=== PATIENT | female | born 1955 | race Caucasian/White ===

== ENCOUNTER 2019-11-27 07:32 | Outpatient (CLI) | payer OTHER, SELFPAY ==
--- NOTE | ~2019-11-27 | XR_ITS ---
EXAMINATION: CT abdomen pelvis wo/w con, XR abdomen/kub 1V DATE: 11/27/2019 08:58 (accession [id number]), 11/27/2019 07:57 (accession [id number]) INDICATION: Gross hematuria TECHNIQUE: Computed tomography (CT) of the abdomen and pelvis was performed without and subsequently with 130 cc Omnipaque 350 intravenous contrast. Automated exposure control and iterative reconstructi on technique were employed. Exam dose: 2886.97 mGy-cm total exam DLP. COMPARISON: 09/25/2004 abdomen-AP/erect FINDINGS: The lung bases are clear of infiltrate or consolidation. No pericardial or pleural effusion . Small sliding hiatal hernia. Status post cholecystectomy. No hepatic, splenic, pancreatic, and adrenal or apparent solid renal space-occupying mass lesion is d etected. There are occasional bilateral hypoenhancing lesions of the kidneys, the largest approximate ly 9.5 mm exophytic cyst of the medial aspect of the upper pole of the right kidney, the others too s mall to definitively characterize. Bilateral renal artery calcifications. No urinary tract calculus or hydroureteronephrosis is evident. The urinary bladder is unremarkable. No intraluminal mass lesion or bladder wall thickening is evide nt. Status post hysterectomy. There is atherosclerotic calcification of the abdominal aorta and branches but no abdominal aortic an eurysm. No intraperitoneal or retroperitoneal or pelvic mass lesion or adenopathy or ascites. Normal appendix. No bowel obstruction or intraperitoneal free air. There is diverticulosis of the sig moid colon; no CT evidence of diverticulitis. There are degenerative changes of the thoracic and lumbar spine; in particular there is severe hypert rophic degenerative change at the apophyseal joints and the lumbar and lumbosacral area with associat ed grade 1 anterolisthesis at L4-5. There is multilevel degenerative disc disease of lumbar spine, in volving most prominently L2-3, L3-4 and L4-5. IMPRESSION: Occasional probable small renal cysts; consider [address] follow-up imaging Status post cholecystectomy Status post hysterectomy Small sliding hiatal hernia Mild colonic diverticulosis; no CT evidence of diverticulitis Reviewed, dictated and finalized at [facility]. Reviewed, dictated and finalized at location B. IMPRESSION: Occasional probable small renal cysts; consider [address] follow- up imaging Status post cholecystectomy Status post hysterectomy Small sliding hiatal hernia Mild colonic diverticulosis; no CT evidence of diverticulitis
[2019-11-27 08:35] LABS: Estimated Glomerular Filt Rate 45
== END 2019-11-27 07:33 | disposition home or self-care (01) ==
LOC: ANHIMG 07:35
PROVIDERS: PCP Family Medicine; Visit Provider Urology
DX: R31.0 Gross hematuria (principal); Z90.49 Acquired absence of other specified parts of digestive tract; Z90.710 Acquired absence of both cervix and uterus; K44.9 Diaphragmatic hernia without obstruction or gangrene; K57.90 Diverticulosis of intestine, part unspecified, without perforation or abscess without bleeding
CPT/HCPCS: 36415; 74018; 74178; Q9967

== ENCOUNTER 2020-01-10 13:45 | Emergency (ER) | payer OTHER, SELFPAY ==
--- NOTE | ~2020-01-10 | XR_ITS ---
CORRECTED REPORT RT corrected to LT. See bold/italic text below. 01/11/20 sef XR wrist LT min 3V DATE: 01/10/2020 14:26 INDICATION: Fall. Pain, limited range of motion. TECHNIQUE: 4 views COMPARISON: None FINDINGS: There is a transverse nondisplaced metaphyseal fracture of the distal radius. There may be some additional fracture lines extending into the epiphyseal area. Intra-articular extension without displacement is not excluded. Consider CT correlation if necessary for more definitive evaluation and treatment. The distal ulna and ulnar styloid process are intact. Normal alignment at the wrist joint. IMPRESSION: Nondisplaced distal radial fracture Reviewed, dictated and finalized at location A. MTDD
[2020-01-10 13:51] VITALS: BP 153/93; PULSE 86; RESP 18; TEMP 36.6; O2SAT 97
--- NOTE | 2020-01-10 14:04 | ED.GENADULT ---
HPI - General Adult General Chief complaint: Extremity Injury, Upper Stated complaint: left wrist injury Time Seen by Provider: 01/10/20 13:51 Source: patient Mode of arrival: ambulatory Limitations: no limitations History of Present Illness HPI narrative: Patient is a 64-year-old female who presents for evaluation of left wrist pain. Patient experienced a fall on outstretched hand 2 days ago when she was trying to enter the residence/trailer of a friend when she slipped on the step and put her left hand out to brace her self. She reports some mild pain at that time, but since then has had worsening swelling and difficulty moving her hand due to pain. Patient also reports a lump on the back of her left hand. Patient denies any head trauma, neck pain, loss of consciousness. No vision loss, nausea or vomiting. Patient is on any anticoagulation. No prodromal symptoms such as chest pain or shortness of breath prior to the fall. Patient is right-hand dominant. Related Data Home Medications Medication Instructions Recorded Confirmed omeprazole 40 mg capsule,delayed 40 mg PO DAILY 09/26/19 release calcitriol 0.25 mcg capsule 0.25 mcg PO DAILY 11/01/19 ergocalciferol (vitamin D2) 1,250 1,250 mcg PO WEEKLY 11/01/19 mcg (50,000 unit) capsule furosemide 20 mg tablet 20 mg PO DAILY tablet 11/01/19 losartan 25 mg tablet 25 mg PO DAILY 11/01/19 rosuvastatin 20 mg tablet 20 mg PO DAILY 11/01/19 semaglutide 1 mg/dose (2 mg/1.5 1 mg SUB-Q WEEKLY 11/01/19 mL) subcutaneous pen injector Allergies Allergy/AdvReac Type Severity Reaction Status Date / Time No Known Allergies Allergy Verified 01/10/20 13:55 Review of Systems Review of Systems: Narrative: CONSTITUTIONAL: Denies fever EYES: Denies visual changes, redness, or discharge. ENT: Denies rhinorrhea, congestion, sore throat, or otalgia. CARDIOVASCULAR: Denies chest pain RESPIRATORY: Denies cough or dyspnea. GASTROINTESTINAL: Denies nausea or vomiting SKIN: Reports lump on the back of her left hand MUSCULOSKELETAL: Denies back pain, joint pain, or myalgia. NEUROLOGIC: Denies headache, numbness, or weakness. [facility] Past Medical History Medical History CKD (chronic kidney disease) stage 3, GFR 30-59 ml/min Dependent edema Depression Dyslipidemia Essential (primary) hypertension GERD (gastroesophageal reflux disease) Hiatal hernia with GERD LEAH (obstructive sleep apnea) Severe sleep apnea Type 2 diabetes mellitus without complication, without long-term current use of insulin Surgical History Surgical History History of cholecystectomy 1993 History of total abdominal hysterectomy and bilateral salpingo-oophorectomy 1986 Social History Social History Smoking status: Former smoker Second hand tobacco smoke exposure: No Smoking end date: 09/20/12 Alcohol intake: current Gender identity (if verbalized by the patient): Female Exam Narrative: Exam Narrative: GENERAL: Awake, alert, conversant HEAD: Normocephalic, atraumatic. EYES: PERRLA and EOMI. ENT: Nares clear, no rhinorrhea or epistaxis. Mucous membranes moist. NECK: Supple. CHEST: No respiratory distress, breathing even and non labored HEART: Regular rate, sinus rhythm ABDOMEN:Non distended, non tender EXTREMITIES: Normal range of motion. Mild edema, hematoma of the left hand. Tender to palpation. Nonfluctuant. No erythema. Radial pulses 2+. Intact sensation median, ulnar, radial nerve distribution. Full range of motion at the elbow without pain. Capillary refill less than 3 seconds. SKIN: Warm, dry, no rash. NEURO:No focal deficits. Alert and oriented x3 Course Vital Signs Vital signs: Vital Signs Temperature 36.6 C 01/10/20 13:51 Pulse Rate 86 01/10/20 13:51 Respiratory Rate 18 01/10/20 13:51 Blood
--- NOTE | 2020-01-10 14:43 | PC.NURSE ---
Assumed care of pt, pt is alert and sitting at bedside, discussed POC, no request at this time.
[2020-01-10 15:52] VITALS: BP 124/84; PULSE 84; RESP 14; O2SAT 99
== END 2020-01-10 15:53 | disposition home or self-care (01) ==
PROVIDERS: Emergency Provider Emergency Medicine; PCP Family Medicine
DX: S52.572A Other intraarticular fracture of lower end of left radius, initial encounter for closed fracture (principal); I12.9 Hypertensive chronic kidney disease with stage 1 through stage 4 chronic kidney disease, or unspecified chronic kidney disease; E11.22 Type 2 diabetes mellitus with diabetic chronic kidney disease; N18.3 Chronic kidney disease, stage 3 (moderate); Z79.84 Long term (current) use of oral hypoglycemic drugs; E78.5 Hyperlipidemia, unspecified; K21.9 Gastro-esophageal reflux disease without esophagitis; G47.30 Sleep apnea, unspecified; Z87.891 Personal history of nicotine dependence; W10.9XXA Fall (on) (from) unspecified stairs and steps, initial encounter
CPT/HCPCS: 29125; 73110; 99284

== ENCOUNTER 2020-09-19 10:34 | Outpatient (CLI) | payer OTHER, SELFPAY ==
--- NOTE | ~2020-09-19 | MM_ITS ---
EXAMINATION: MM screening [facility] BI w [place] HISTORY: Screening mammogram TECHNIQUE: Craniocaudal and mediolateral oblique 3-D tomosynthesis images were obtained and synthetic 2-D images were generated. CAD analysis was submitted and interpreted. COMPARISON: 06/13/2019, 10/26/2017, 01/07/2015 BREAST PARENCHYMAL COMPOSITION: The breasts are almost entirely fatty. FINDINGS: There is no evidence of suspicious mass, calcification, or architectural distortion to sugg est malignancy in either breast. There has been no suspicious interval change. IMPRESSION: 1. No mammographic evidence of malignancy. 2. Recommend routine screening mammography in one year. BI-RADS Category 1: Negative Reviewed, dictated and finalized at location A. NT CARE
== END 2020-09-19 10:35 | disposition home or self-care (01) ==
LOC: ANHIMG 10:36
PROVIDERS: PCP Family Medicine; Visit Provider Nurse Practitioner
DX: Z12.31 Encounter for screening mammogram for malignant neoplasm of breast (principal)
CPT/HCPCS: 77063; 77067

== ENCOUNTER 2021-01-18 11:51 | Outpatient (CLI) | payer OTHER, SELFPAY ==
--- NOTE | 2021-01-18 | ECG_ITS ---
Measurements Intervals [place] Rate: 82 P: 13 KS: 167 QRS: -14 QRSD: 100 T: 73 QT: 385 QTc: 452 Interpretive Statements SINUS RHYTHM VENTRICULAR PREMATURE COMPLEXES ANTEROSEPTAL INFARCT, AGE INDETERMINATE BORDERLINE ST-T WAVE ABNORMALITY- HIGH LATERAL LEADS BASELINE ARTIFACT- AVR, AVF ABNORMAL ECG Electronically Signed On 01-18-2021 17:10:04 CDT by Saurabh Diez D.O.
== END 2021-01-18 11:52 | disposition home or self-care (01) ==
LOC: ANHCARD 11:53
PROVIDERS: PCP Family Medicine; Visit Provider Family Medicine
DX: I49.9 Cardiac arrhythmia, unspecified (principal); R94.31 Abnormal electrocardiogram [ECG] [EKG]
CPT/HCPCS: 93005

== ENCOUNTER 2021-02-05 10:23 | Outpatient (CLI) | payer OTHER, SELFPAY ==
--- NOTE | ~2021-02-05 | NM_ITS ---
EXAMINATION: NM ashly stress w perfusion DATE: 02/05/2021 12:59 INDICATION: Abnormal electrocardiogram. TECHNIQUE: Rest images were obtained following intravenous administration of 9.2 mCi Tc99m tetrofosmi n (Myoview). The patient was infused intravenously with Lexiscan (regadenoson). Then, 29 mCi Tc99m te trofosmin (Myoview) was administered intravenously, and axial and prone stress images were obtained. Data was reconstructed into short axis and horizontal and vertical long axis SPECT images. Gated SPEC T images were also obtained. COMPARISON: CT abdomen and pelvis 11/27/2019 FINDINGS: There is a large, severe, fixed perfusion defect involving left ventricular apex and anteri or and anteroseptal wall, consistent with infarct. No reversible component to suggest ischemia. Ther e is global hypokinesis. Left ventricular ejection fraction measures 36%. IMPRESSION: 1. 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 2. Global hypokinesis with left ventricular ejection fraction measuring 36%. Reviewed, dictated and finalized at location A. IMPRESSION: 1. Large area of severe infarct involving left ventricular apex and anterior an d anteroseptal rodriguez. 2. Global hypokinesis with left ventricular ejection fraction measuring 36%.
--- NOTE | 2021-02-05 10:03 | EST_ITS ---
Patient Info Name: Mis Vo Age: 65 years : 1955 Gender: Female Ht: 66 in Wt: 230 lbs BSA: 2.25 m2 Exam Date: 02/05/2021 11:46 AM Exam Location: [facility] Stress Patient Status: Preadmit Admit Date: 02/05/2021 Staff Ordering Physician: Rey Cabral MD Attending Provider: Rey Cabral MD Exercise Technologist: Annemarie Escoto CT Exercise Physician: Saurabh Diez DO Exam Type: CA stress ashly w NM Study Info A regadenoson stress test was performed. Summary 1. 1. Negative lexiscan stress test for ischemic ST changes by ECG criteria. 2. 2. Stable hemodynamics throughout the test. 3. 3. Nuclear scan to follow and will be reported separately. Please correlate with it. 4. 4. Patient informed of the above results. Protocol: Lexiscan Stress ECG Details Stage: REST Duration (min): 0 min : 40 sec HR (bpm): 85 SBP (mmHg): --- DBP (mmHg): --- Stage: REST Duration (min): 6 min : 1 sec HR (bpm): 87 SBP (mmHg): 133 DBP (mmHg): 104 Stage: STAGE 1 Duration (min): 1 min : 0 sec HR (bpm): 100 SBP (mmHg): 142 DBP (mmHg): 109 Stage: RECOVERY Duration (min): 1 min : 0 sec HR (bpm): 91 SBP (mmHg): 142 DBP (mmHg): 109 Stage: RECOVERY Duration (min): 2 min : 0 sec HR (bpm): 86 SBP (mmHg): 152 DBP (mmHg): 101 Stage: RECOVERY Duration (min): 2 min : 6 sec HR (bpm): 89 SBP (mmHg): 152 DBP (mmHg): 101 Rest HR: 87 bpm Peak HR: 102 bpm Rest Sys BP: 133 mmHg Peak Sys BP: 152 mmHg Max Pred HR: 156 bpm % Max Pred HR: 65 % Target HR: 133 bpm Max RPP: 15,504 bpm*mmHg Termination Reason: Completed protocol Cardiac Symptoms: None Total Time: 1 min : 0 sec Rest [place] BP: 104 mmHg Peak [place] BP: 101 mmHg Total Dose: 0.4 mg Resting ECG Sinus rhythm, anteroseptal infarct, age indeterminate, PVC's. Stress ECG No ST changes. Arrhythmias None. Report Signatures
== END 2021-02-05 10:24 | disposition home or self-care (01) ==
PROVIDERS: PCP Family Medicine; Visit Provider Family Medicine
DX: I49.9 Cardiac arrhythmia, unspecified (principal); R94.31 Abnormal electrocardiogram [ECG] [EKG]; I10 Essential (primary) hypertension
CPT/HCPCS: 78452; 93017; A9502; J2785

== ENCOUNTER 2021-03-27 01:54 | Day surgery (SDC) | payer OTHER, SELFPAY ==
[2021-03-26 15:52] VITALS: BMI 37.7
[2021-03-27] VITALS (17 sets, daily range): BP systolic 112–168; BP diastolic 70–95; PULSE 68–94; RESP 12–24; TEMP 36.2–36.7; O2SAT 96–100; BMI 38.2
[2021-03-27 08:58] LABS: Basophils Percent Auto 0.5 % (0.2-1.2); Eosinophils Absolute Auto 0.3 K/mm3 (0-0.3); Eosinophils Percent Auto 4.6 % (0-4.4); Hematocrit 45.1 % (37.0-47.0); Hemoglobin 14.2 g/dL (12.0-15.0); Immature Granulocyte Absolute 0.02 K/mm3 (0.00-0.031); Immature Granulocyte Percent A 0.3 % (0-0.5); Lymphocytes Percent Auto 18.6 % (18.3-44.2); Mean Corpuscular HGB Conc 31.5 g/dl (32-36); Mean Corpuscular Hemoglobin 29.1 pg (26-34); Mean Corpuscular Volume 92.4 fl (80-100); Mean Platelet Volume 10.6 fl (7.4-10.4); Monocytes Absolute Auto 0.4 K/mm3 (0.1-0.6); Monocytes Percent Auto 7.3 % (2.6-8.5); Neutrophils Absolute Auto 4.1 K/mm3 (1.3-6.7); Neutrophils Percent Auto 68.7 % (45.5-73.1); Platelet Count Result 216 k/mm3 (150-375); Red Blood Count 4.88 M/mm3 (4.2-5.4); Red Cell Distribution Width 12.6 % (11.5-14.5); White Blood Count 5.9 K/mm3 (4.5-10.0)
[2021-03-27 09:09] LABS: Anion Gap 9 mmol/L (8-16); Blood Urea Nitrogen 28 mg/dL (7-17); Carbon Dioxide 28 mmol/L (22-30); Chloride 102 mmol/L (98-107); Estimated CRCL calculation 56 ml/min; Estimated Glomerular Filt Rate 50; Glucose 100 mg/dL (65-105); Potassium 4.5 mmol/L (3.4-5.0); Sodium 139 mmol/L (137-145)
--- NOTE | 2021-03-27 10:00 | WPDMODSED ---
Moderate Sedation Note-Pt Data Patient Data Allergies Allergy/AdvReac Type Severity Reaction Status Date / Time No Known Allergies Allergy Verified 03/27/21 09:01 Home Medications Medication Instructions Recorded Confirmed Type rosuvastatin 20 mg tablet 20 mg PO DAILY 11/01/19 03/27/21 History semaglutide 1 mg/dose (2 mg/1.5 1 mg SUB-Q WEEKLY 11/01/19 03/27/21 History mL) subcutaneous pen injector omeprazole 40 mg capsule,delayed 40 mg PO DAILY cap 01/16/21 03/27/21 History release triamterene 75 1 tablet PO DAILY #90 tablet 01/16/21 03/27/21 Rx mg-hydrochlorothiazide 50 mg tablet aspirin 81 mg PO DAILY 03/26/21 03/27/21 History cholecalciferol (vitamin D3) 50 mcg PO DAILY 03/27/21 03/27/21 History magnesium oxide 250 mg PO DAILY 03/27/21 03/27/21 History Current Medications: Active Medications Sodium Chloride (Normal Saline Iv) 500 mls @ 100 mls/hr IV CONT .Q5H BRADLY Sedation/Anesthesia: No previous sedation/anesthesia problems (including family history). [facility] Past Medical History Medical History CKD (chronic kidney disease) stage 3, GFR 30-59 ml/min Dependent edema Depression Dyslipidemia Essential (primary) hypertension GERD (gastroesophageal reflux disease) Hiatal hernia with GERD LEAH (obstructive sleep apnea) Severe sleep apnea Type 2 diabetes mellitus without complication, without long-term current use of insulin Surgical History Surgical History History of cholecystectomy 1993 History of total abdominal hysterectomy and bilateral salpingo-oophorectomy 1986 Social History Social History Smoking status: Former smoker Tobacco type: cigarettes Second hand tobacco smoke exposure: No Smoking end date: 09/20/12 Additional smoking assessment comments: Quit smoking 2013 Alcohol intake: current Alcohol use details: Occasionally drinks Substance use: never Substance use type: does not use Living arrangements: with roommate(s) Additional living arrangements comments: Lives with boyfriend Gender identity (if verbalized by the patient): Female Sexual Orientation (if Verbalized by the Patient): Straight or Heterosexual Spiritual care concerns: No Mod Sed Physical Exam Physical Exam Pre Procedural Exam: Normal: Appearance, Eyes, Ears, Nose, Neck, Throat, Airway, Lungs, Heart Size, Heart Rate, Heart Rhythm, Neuro Exam, Abdomen, Liver, Kidneys, Spleen, Breasts, Genitalia, Extremities and Skin Hours since solid foods: 8 Hours since liquid intake: 8 Internal Medicine - PN: Obj Da Vital Signs Vital Signs: Vital Signs - 24 hr 03/27/21 08:50 Temperature 36.2 C L Pulse Rate 78 Respiratory Rate 12 Blood Pressure 143/82 H Pulse Oximetry 98 Meds/Results Medications: Active Medications Generic Name Dose Route Start Last Admin Trade Name Freq PRN Reason Stop Dose Admin Sodium Chloride 500 mls @ 100 mls/hr 03/27/21 08:30 Normal Saline Iv IV CONT .Q5H BRADLY Labs CBC & Chem 7: 03/27/21 08:49 03/27/21 08:49 Labs: Laboratory Results - last 24 hr 03/27/21 03/27/21 03/27/21 08:49 08:49 08:49 WBC 5.9 RBC 4.88 Hgb 14.2 Hct 45.1 MCV 92.4 MCH 29.1 MCHC 31.5 L RDW 12.6 Plt Count 216 MPV 10.6 H Immature Gran % (Auto) 0.3 Neut % (Auto) 68.7 Lymph % (Auto) 18.6 [place] % (Auto) 7.3 Eos % (Auto) 4.6 H Baso % (Auto) 0.5 Lymph # (Auto) 1.10 [place] # (Auto) 0.4 Eos # (Auto) 0.3 Baso # (Auto) 0.0 Abs Immat Gran (auto) 0.02 Absolute Neuts (auto) 4.1 Absolute Nucleated RBC 0.0 Nucleated RBC % 0.0 PT 13.0 INR 1.0 Sodium 139 Potassium 4.5 Chloride 102 Carbon Dioxide 28 Anion Gap 9 BUN 28 H Creatinine 1.10 H Estim Creat Clear Calc 56 Estimated GFR 50
--- NOTE | 2021-03-27 11:15 | PM.IMHP ---
H&P: HPI History of Present Illness Date/Time: 03/27/21 10:00 a.m. Chief Complaint: his abnormal stress test Narrative: this 65-year-old female with past history diabetes, hypertension sleep apnea on CPAP who had elevated blood pressure and was noticed to have PVCs and EKG shows Q-waves lead V1 to V3. Underwent stress test that showed large area of infarction involving the apical, anterior wall and ejection fraction 35%. She denies cardiac symptoms of chest pain, shortness breath, orthopnea or proximal transient dizziness or syncope. Review of Systems Review of Systems: All systems reviewed & are unremarkable except as noted in HPI and below Constitutional: Constitutional: Denies chills, Denies fatigue, Denies fever(s), Denies headache(s) and Denies snoring Eyes: Eyes: Denies eye discharge and Denies loss of vision ENT: Denies dizziness, Denies headache(s), Denies nasal discharge and Denies sore throat Cardiovascular: Cardiovascular: Reports as per HPI, Denies chest pain, Denies syncope, Denies rapid heart rate, Denies leg edema, Denies dyspnea, Denies dyspnea on exertion, Denies orthopnea and Denies paroxysmal nocturnal dyspnea Respiratory: Respiratory: Denies chest congestion, Denies cough, Denies dyspnea, Denies dyspnea on exertion, Denies snoring and Denies wheezing Gastrointestinal: Gastrointestinal: Denies abdominal pain, Denies diarrhea, Denies nausea and Denies vomiting Genitourinary: Genitourinary: Denies hematuria, Denies urinary frequency, Denies dysuria and Denies flank pain Musculoskeletal: Musculoskeletal: Denies myalgias, Denies arthralgias and Denies joint swelling Neurologic: Denies Abnormal speech present, Denies dizziness, Denies syncope, Denies headache(s), Denies focal weakness and Denies loss of vision Psychiatric: Psychiatric: Denies anxiety and Denies depression Endocrine: Endocrine: Denies cold intolerance, Denies fatigue and Denies heat intolerance Hematologic/Lymphatic: Hematologic/Lymphatic: Denies easy bleeding and Denies easy bruising Allergic/Immunologic: Allergic/Immunologic: Denies urticaria and Denies wheezing PMFSH Past Medical History Medical History CKD (chronic kidney disease) stage 3, GFR 30-59 ml/min Dependent edema Depression Dyslipidemia Essential (primary) hypertension GERD (gastroesophageal reflux disease) Hiatal hernia with GERD LEAH (obstructive sleep apnea) Severe sleep apnea Type 2 diabetes mellitus without complication, without long-term current use of insulin Surgical History Surgical History History of cholecystectomy 1993 History of total abdominal hysterectomy and bilateral salpingo-oophorectomy 1986 Social History Social History Smoking status: Former smoker Tobacco type: cigarettes Second hand tobacco smoke exposure: No Smoking end date: 09/20/12 Additional smoking assessment comments: Quit smoking 2013 Alcohol intake: current Alcohol use details: Occasionally drinks Substance use: never Substance use type: does not use Living arrangements: with roommate(s) Additional living arrangements comments: Lives with boyfriend Gender identity (if verbalized by the patient): Female Sexual Orientation (if Verbalized by the Patient): Straight or Heterosexual Spiritual care concerns: No Meds Home Medications and Allergies Home Medications Medication Instructions Recorded Confirmed Type rosuvastatin 20 mg tablet 20 mg PO DAILY 11/01/19 03/27/21 History semaglutide 1 mg/dose (2 mg/1.5 1 mg SUB-Q WEEKLY 11/01/19 03/27/21 History mL) subcutaneous pen injector omeprazole 40 mg capsule,delayed 40 mg PO DAILY cap 01/16/21 03/27/21 History release triamterene 75 1 tablet PO DAILY #90 tablet 01/16/21 03/27/21 Rx mg-hydrochlorothiazide 50 mg tablet aspirin 81 mg PO
--- NOTE | 2021-03-27 11:18 | P.PCNCC_ITS ---
Cardiac Cath Procedure Note Date of procedure:: 03/27/21 Performing physician:: Juanita Gordon MD date of service March 27, 2021 Indication:: abnormal stress test Brief clinical history:: this 65-year-old lady with history of diabetes, hypertension and hyperlipidemia who was evaluated for PVCs and underwent stress test that shows a large area infarction involving the anterior wall. Ejection fraction 36% Procedure Procedure performed:: 1-Moderate sedation that started at 10:26 a.m.and ended at 11:08 a.m. using 3mg of Versed and 75mcg fentanyl. The registered nurse was florencia nieves 2-Selective left and right coronary angiogram. 3-Left heart catheterization with measurement of LVEDP and measurement of gradient across aortic valve. 4- deployment of a drug-eluting stent Xience 3.25 x 18 to distal left PDA 4-Right common femoral arterial angiogram. 5-Deployment of 6 Bah[place]ian Angio-Seal. Sedation/Medication given:: Moderate sedation. Access site:: Right common femoral artery. Estimated blood loss:: 10cc Procedure note:: After informed consent patient was brought in to laboratory asst with the was draped and prepped in usual manner. Moderate sedation was given and the right groin was infiltrated using 1% lidocaine. Five Bahamian sheath was obtained using micropuncture needle and the modified Seldinger technique. Selective left coronary angiogram was done using JL4 catheter with the tip of the catheter placed in the left main coronary artery. Selective right coronary angiogram was done using JR4 catheter with the tip of the catheter placed to the right coronary artery. After that 5 [place]amian pigtail catheter was advanced across the aortic valve into the left ventricle with measurement of LVEDP and measurement of gradient across aortic valve. Right common femoral arterial angiogram was done. Findings:: 1- left coronary artery is a large artery that divides into large LAD, large circumflex artery. Left main is free of disease. 2- left anterior descending artery And totally occluded proximally. [id number] and [id number] collaterals. There is a faint channel seen coming from the stump of the proximal LAD. medium-sized diagonal branch proximal to the occlusion has proximal 50% 3- leftcircumflex artery is a large artery and codominant. Has diffuse 50% stenosis in the proximal and mid segment. Distal left PDA 95%. 4- right coronary artery is Large artery. Diffuse irregularities and has 50% proximally. right to left collaterals. 5- LVEDP was 50 mm Hgand no gradient across aortic valve. 6- opening arterial pressure was 150/90 and closing pressure was 130/80 7- right femoral artery angiogram shows no significant disease in the right common femoral artery. Conclusion:: successful stenting left PDA totally occluded LAD with [id number] and [id number]-gc-gluf collaterals. Assessment and Plan Additional Plan will bring this patient to [facility] for attempt to open the LAD. Her ejection fraction is low
[2021-03-27 15:22] LABS: Glucose Point of Care 144 mg/dl (65-105)
--- NOTE | 2021-03-27 18:15 | PC.NURSE ---
This patient, Mis Vo, was received from [facility] on 03/27/21 at 1815. Patient/family oriented to unit policies and routines.
--- NOTE | 2021-03-27 18:48 | ECG_ITS ---
Rate 89 DC 142 QRSd 94 QT 385 QTc 470 --[place]-- P -31 QRS -31 T 72 SINUS RHYTHM VENTRICULAR PREMATURE COMPLEXES LEFT AXIS DEVIATION ANTEROSEPTAL INFARCT, AGE INDETERMINATE BORDERLINE ST-T WAVE ABNORMALITY- HIGH LATERAL LEADS ABNORMAL ECG Electronically Signed On 03-27-2021 20:10:44 CDT by Saurabh Diez D.O. COMPARED TO ECG 01/18/2021 12:07:12 LEFT-AXIS DEVIATION NOW PRESENT MTDD
--- NOTE | 2021-03-27 18:53 | PC.NURSE ---
RN gave report to Benji SOTO. Patient transported to room and hooked up to bedside tele monitor.
[2021-03-27] MEDS: SODIUM CHLORIDE 0.9% IV 1,000 ML 125 ML IV CONT (20:27)
[2021-03-27] MEDS: TICAGRELOR 90 MG TABLET PO (20:27)
[2021-03-27 21:23] LABS: Glucose Point of Care 145 mg/dl (65-105)
[2021-03-28] VITALS: BP 138/74; PULSE 77; PULSE 80; RESP 13; TEMP 36.7; O2SAT 96
[2021-03-28 04:00] VITALS: BP 140/71; PULSE 78; PULSE 80; RESP 13; TEMP 36.9; O2SAT 98
[2021-03-28 06:21] LABS: Anion Gap 6 mmol/L (8-16); Blood Urea Nitrogen 23 mg/dL (7-17); Calcium 9.9 mg/dL (8.4-10.2); Carbon Dioxide 31 mmol/L (22-30); Chloride 102 mmol/L (98-107); Estimated CRCL calculation 62 ml/min; Estimated Glomerular Filt Rate 56; Glucose 118 mg/dL (65-105); Potassium 4.6 mmol/L (3.4-5.0); Sodium 139 mmol/L (137-145)
[2021-03-28 08:00] VITALS: BP 147/80; PULSE 74; PULSE 94; RESP 16; TEMP 36.4; O2SAT 97
[2021-03-28 08:02] LABS: Glucose Point of Care 118 mg/dl (65-105)
[2021-03-28] MEDS: TRIAMTERENE 37.5 MG/HCTZ 25 MG (MAXZIDE) TABLET 2 TAB PO (08:57)
[2021-03-28] MEDS: TICAGRELOR 90 MG TABLET PO (08:57)
[2021-03-28] MEDS: ASPIRIN 81 MG ENTERIC TABLET PO (08:57)
[2021-03-28] MEDS: ROSUVASTATIN 10 MG TABLET 20 MG PO (08:57)
[2021-03-28] MEDS: PANTOPRAZOLE 40 MG TABLET PO (08:57)
[2021-03-28 10:00] VITALS: PULSE 70
--- NOTE | 2021-03-28 11:42 | PM.DS ---
DS: Admitting Diagnosis Admitting Diagnosis Admitting Diagnosis: abnormal stress test <RAJESH Mcintosh - Last Filed: 03/28/21 12:19> DS: Discharge Diagnosis Discharge Diagnosis (1) Positive cardiac stress test: Code(s): R94.39 - Abnormal result of other cardiovascular function study <RAJESH Mcintosh - Last Filed: 03/28/21 12:19> Status: Acute <RAJESH Mcintosh - Last Filed: 03/28/21 12:19> Assessment and Plan: Lexiscan stress test performed in January of this year revealin.Large area of severe infarct involving left ventricular apex and anterior and anteroseptal rodriguez. 2. Global hypokinesis with left ventricular ejection fraction measuring 36%. For this reason a left heart catheterization was recommended and performed on 03/27/2021. <RAJESH Mcintosh - Last Filed: 03/28/21 12:19> (2) History of heart artery stent: Code(s): Z95.5 - Presence of coronary angioplasty implant and graft <RAJESH Mcintosh - Last Filed: 03/28/21 12:19> Status: Acute <RAJESH Mcintosh - Last Filed: 03/28/21 12:19> Assessment and Plan: Left heart catheterization from 03/27/2021 revealed: 1- left coronary artery is a large artery that divides into large LAD, large circumflex artery. Left main is free of disease. 2- left anterior descending artery And totally occluded proximally. Xxfp-[id number]-ansv and rhwsg-ke-ldwn collaterals. There is a faint channel seen coming from the stump of the proximal LAD. medium-sized diagonal branch proximal to the occlusion has proximal 50% 3- left circumflex artery is a large artery and codominant. Has diffuse 50% stenosis in the proximal and mid segment. Distal left PDA 95%. 4- right coronary artery is Large artery. Diffuse irregularities and has 50% proximally. right to left collaterals. 5- LVEDP was 50 mm Hg and no gradient across aortic valve. 6- opening arterial pressure was 150/90 and closing pressure was 130/80 7- right femoral artery angiogram shows no significant disease in the right common femoral artery. A Xience 3.25 x 18 drug-eluting stent was deployed to distal left PDA. She has been placed on aspirin, Brilinta, Crestor. She will return to [facility] in several weeks for an elective, scheduled left heart catheterization and PCI. <RAJESH Mcintosh - Last Filed: 03/28/21 12:19> (3) Decreased cardiac ejection fraction: Code(s): R93.1 - Abnormal findings on diagnostic imaging of heart and coronary circulation <RAJESH Mcintosh - Last Filed: 03/28/21 12:19> Status: Acute <RAJESH Mcintosh - Last Filed: 03/28/21 12:19> Assessment and Plan: Ischemic etiology. Ejection fraction on recent echocardiogram was estimated at 35-40%. <RAJESH Mcintosh - Last Filed: 03/28/21 12:19> DS: Summary Hospital Course Reason for hospitalization: Elective left heart cath <RAJESH Mcintosh - Last Filed: 03/28/21 12:19> Hospital Course: Patient Presented to the hospital on 03/27/2021 for elective left heart catheterization. This was recommended by Dr. Gordon following an abnormal Lexiscan stress test and echocardiogram showing reduced systolic function, EF 35-40%. Coronary angiogram revealed total proximal occlusion of the LAD, 50% occlusion to a diagonal branch off the LAD, 95% stenosis of distal left PDA, diffuse disease of the right coronary artery. a drug-eluting stent was placed in the left PDA. She did not encounter any aisha procedural complications. Today, she is feeling well and does not have any complaints of any kind. Her right groin catheter insertion site is free from any bleeding, hematoma, pain. She is stable and appropriate for discharge to home today. <RAJESH Mcintosh - Last Filed: 03/28/21 12:19> I HAVE SEEN AND EXAMINED THE PATIENT AND AGREE WITH THE ASSESSMENT AND PLAN OF THE NURSE PRACTITIONER. SHE WAS ADMI
[2021-03-28 11:55] LABS: Glucose Point of Care 127 mg/dl (65-105)
[2021-03-28 11:56] VITALS: BP 127/96; PULSE 103; RESP 15; TEMP 36.6; O2SAT 94
[2021-03-28] MEDS: MAGNESIUM OXIDE 200 MG TABLET PO (13:04)
== END 2021-03-28 13:43 | disposition home or self-care (01) ==
LOC: ANHCATHLAB 08:29 → ANHCPC 14:20 → ANHIMU 18:42
PROVIDERS: PCP Family Medicine; Visit Provider Internal Medicine Cardiovascular Disease
PROC: 4A023N7 Measurement of Cardiac Sampling and Pressure, Left Heart, Percutaneous Approach (ICD-10-PCS; CPT 93452; principal; 2021-03-27 10:00)
DX: I25.10 Atherosclerotic heart disease of native coronary artery without angina pectoris (principal); I49.3 Ventricular premature depolarization; E11.9 Type 2 diabetes mellitus without complications; E78.5 Hyperlipidemia, unspecified; F32.9 Major depressive disorder, single episode, unspecified; I12.9 Hypertensive chronic kidney disease with stage 1 through stage 4 chronic kidney disease, or unspecified chronic kidney disease; N18.30 Chronic kidney disease, stage 3 unspecified; G47.33 Obstructive sleep apnea (adult) (pediatric); K44.9 Diaphragmatic hernia without obstruction or gangrene; R60.9 Edema, unspecified; Z87.891 Personal history of nicotine dependence; K21.9 Gastro-esophageal reflux disease without esophagitis
CPT/HCPCS: 36415; 80048; 82948; 85025; 85610; 93005; 93458; 94660; A9270; C1725; C1760; C1769; C1874; C1887; C1894; C9600; G0269; J0583; J1644; J2250; J3010; J7030; J7040

== ENCOUNTER 2021-09-04 08:43 | Outpatient (CLI) | payer OTHER, SELFPAY ==
[2021-09-04 09:26] LABS: Basophils Percent Auto 0.4 % (0.2-1.2); Eosinophils Absolute Auto 0.2 K/mm3 (0-0.3); Eosinophils Percent Auto 3.4 % (0-4.4); Hemoglobin 15.2 g/dL (12.0-15.0); Immature Granulocyte Absolute 0.02 K/mm3 (0.00-0.031); Immature Granulocyte Percent A 0.3 % (0-0.5); Lymphocytes Absolute Auto 1.51 K/mm3 (0.9-3.2); Mean Corpuscular Hemoglobin 30.6 pg (26-34); Mean Corpuscular Volume 92.6 fl (80-100); Mean Platelet Volume 10.9 fl (7.4-10.4); Monocytes Absolute Auto 0.5 K/mm3 (0.1-0.6); Monocytes Percent Auto 7.9 % (2.6-8.5); Neutrophils Absolute Auto 4.5 K/mm3 (1.3-6.7); Platelet Count Result 242 k/mm3 (150-375); Red Blood Count 4.97 M/mm3 (4.2-5.4); Red Cell Distribution Width 12.2 % (11.5-14.5); White Blood Count 6.9 K/mm3 (4.5-10.0)
[2021-09-04 09:38] LABS: Anion Gap 8 mmol/L (8-16); Blood Urea Nitrogen 33 mg/dL (7-17); Calcium 10.4 mg/dL (8.4-10.2); Carbon Dioxide 31 mmol/L (22-30); Chloride 101 mmol/L (98-107); Estimated Glomerular Filt Rate 50; Glucose 118 mg/dL (65-110); Potassium 4.6 mmol/L (3.4-5.0); Sodium 140 mmol/L (137-145)
== END 2021-09-04 08:44 | disposition home or self-care (01) ==
PROVIDERS: PCP Family Medicine; Visit Provider Internal Medicine Cardiovascular Disease
DX: I48.0 Paroxysmal atrial fibrillation (principal)
CPT/HCPCS: 36415; 80048; 84443; 85025

== ENCOUNTER 2022-01-01 16:57 | Outpatient (CLI) | payer OTHER, SELFPAY ==
--- NOTE | ~2022-01-01 | MM_ITS ---
EXAMINATION: MM screening darinel BI w rico HISTORY: Screening TECHNIQUE: Craniocaudal and mediolateral oblique 3-D tomosynthesis images were obtained and synthetic 2-D images were generated. CAD analysis was submitted and interpreted. COMPARISON: Comparison to multiple prior studies sequentially, with oldest reviewed study dated 01/09. BREAST PARENCHYMAL COMPOSITION: There are scattered areas of fibroglandular density. FINDINGS: There is no evidence of suspicious mass, calcification, or architectural distortion to sugg est malignancy in either breast. There has been no suspicious interval change. IMPRESSION: 1. No mammographic evidence of malignancy. 2. Recommend routine screening mammography in one year. BI-RADS Category 1: Negative Reviewed, dictated and finalized at location A.
== END 2022-01-01 16:58 | disposition home or self-care (01) ==
LOC: ANHIMG 16:58
PROVIDERS: PCP Family Medicine; Visit Provider Obstetrics & Gynecology Gynecology
DX: Z12.31 Encounter for screening mammogram for malignant neoplasm of breast (principal)
CPT/HCPCS: 77063; 77067

== ENCOUNTER 2022-09-29 14:40 | Outpatient (RCR) | payer OTHER, SELFPAY ==
[2022-09-29 17:42] LABS: Creatinine Urine 89.9 mg/dL
[2022-09-29 17:54] LABS: MALB Creatinine Ratio 310.1 mg/g (0-30); Microalbumin Urine Random 278.8 mg/L (0-16.7)
[2022-09-29 19:36] LABS: Anion Gap 9 mmol/L (8-16); Blood Urea Nitrogen 22 mg/dL (7-17); Calcium 9.9 mg/dL (8.4-10.2); Carbon Dioxide 27 mmol/L (22-30); Chloride 104 mmol/L (98-107); Estimated Glomerular Filt Rate 56; Glucose 165 mg/dL (65-110); HDL Direct 68 mg/dL; Potassium 4.9 mmol/L (3.4-5.0); Sodium 140 mmol/L (137-145)
[2022-09-29 19:46] LABS: LDL Cholesterol Direct 107 mg/dL
== END 2022-12-28 23:59 | disposition home or self-care (01) ==
LOC: ANHWCLAB 14:40
PROVIDERS: PCP Family Medicine; Visit Provider Internal Medicine Endocrinology, Diabetes & Metabolism
DX: E11.65 Type 2 diabetes mellitus with hyperglycemia (principal)
CPT/HCPCS: 36415; 80048; 82043; 83718; 83721; 84443

== ENCOUNTER 2022-12-17 15:30 | Outpatient (RCR) | payer OTHER, SELFPAY ==
[2022-10-27 08:10] VITALS: BMI 40.6
[2022-10-27 08:35] VITALS: BMI 40.6
== END 2023-01-11 12:38 | disposition home or self-care (01) ==
LOC: ANHDMC 15:30
PROVIDERS: PCP Family Medicine; Visit Provider Internal Medicine Endocrinology, Diabetes & Metabolism
DX: E11.65 Type 2 diabetes mellitus with hyperglycemia (principal); Z71.89 Other specified counseling; Z71.3 Dietary counseling and surveillance
CPT/HCPCS: 97802; G0108

== ENCOUNTER 2023-04-20 15:30 | Outpatient (RCR) | payer OTHER, SELFPAY | END 2023-04-20 16:50 | disposition home or self-care (01) | LOC: ANHDMC 15:30 | PROVIDERS: PCP Family Medicine; Visit Provider Internal Medicine Endocrinology, Diabetes & Metabolism | DX: E11.65 Type 2 diabetes mellitus with hyperglycemia (principal); Z71.89 Other specified counseling | CPT/HCPCS: G0108 ==

== ENCOUNTER 2023-10-08 13:37 | Outpatient (CLI) | payer OTHER, SELFPAY ==
--- NOTE | ~2023-10-08 | DEXA_ITS ---
Bone Density Report Name: PACO GONZALEZ Patient ID: Age: 67 Sex: Female Ethnicity: White Date of : 1955 Indication: postmenopausal; screening for osteoporosis; height loss; hysterectomy; Referring Provider: HAL ROSEN Study: Bone densitometry was performed. Exam Date: October 08, 2023 Accession number: [id number] Bone Density: Region BMD T-score Z-score Classification AP Spine(L1-L4) 1.151 0.9 2.8 Normal Femoral Neck (Left) 0.673 -1.6 0.0 Osteopenia Total Hip (Left) 0.919 -0.2 1.1 Normal Femoral Neck (Right) 0.758 -0.8 0.8 Normal Total Hip (Right) 0.897 -0.4 1.0 Normal Total Hip Mean 0.908 -0.3 1.1 Normal World Health Organization criteria for BMD impression classify patients as: Normal (T-score at or above -1.0), Osteopenia (T-score between -1.0 and -2.5), or Osteoporosis (T-score at or below -2.5). 10-year Fracture Risk(1): Major Osteoporotic Fracture 8.3% Hip Fracture 0.9% Reported Risk Factors: [place] (), Neck BMD=0.673, BMI=39.6 (1) FRAX? Version 3.08. Fracture probability calculated for an untreated patient. Fracture probability may be lower if the patient has received treatment. Clinical Information Provided by Patient: Has the following medical conditions: Hysterectomy Patient maximum height was 66.5 Menopause Age: 31 No regular weight bearing exercise Does not regularly consume dairy products Onset of menses at age 15 Number of children 2 Impression: The patient has low bone mass, based on the Left Femoral Neck T- score. The patient has an estimated ten-year risk of hip fracture of 0.9% and an estimated ten-year risk of major fracture of 8.3%, based on the WHO FRAX algorithm. Discussion: BONE DENSITY IS LOW AT ONE OR MORE SKELETAL SITES. This patient's lowest T-score is low at one or more skeletal sites. It meets the World Health Organization's (WHO) criteria for ?low bone mass? (T-score between -1.0 and -2.5). The patient's 10-year risk of fracture as calculated by FRAX is less than the threshold where pharmacological therapy is recommended by the National Osteoporosis Foundation (NOF). However, all treatment decisions require clinical judgment and consideration of individual patient factors, including patient preferences, comorbidities, previous drug use, risk factors not captured in the FRAX model (e.g., frailty, falls, vitamin D deficiency, increased bone turnover, interval significant decline in bone density) and possible under or overestimation of fracture risk by FRAX. The patient should follow a healthful lifestyle (good nutrition with adequate calcium and vitamin D, and appropriate weight-bearing exercise). Follow-Up: Consider repeating this study in 2 to 3 years to reassess this patient's status, or sooner if there is some new clinical indication. Reported by: [facility] on 10/25/2023 9:28:00 AM
== END 2023-10-08 13:38 | disposition home or self-care (01) ==
LOC: ANHIMG 13:43
PROVIDERS: PCP Family Medicine; Visit Provider Obstetrics & Gynecology Gynecology
DX: Z78.0 Asymptomatic menopausal state (principal); M85.88 Other specified disorders of bone density and structure, other site
CPT/HCPCS: 77080

== ENCOUNTER 2023-10-26 15:27 | Outpatient (RCR) | payer OTHER, SELFPAY | END 2023-10-29 14:56 | disposition home or self-care (01) | LOC: ANHDMC 15:27 | PROVIDERS: PCP Family Medicine; Visit Provider Internal Medicine Endocrinology, Diabetes & Metabolism | DX: E11.65 Type 2 diabetes mellitus with hyperglycemia (principal); Z71.89 Other specified counseling | CPT/HCPCS: G0108 ==

== ENCOUNTER 2024-02-23 14:56 | Outpatient (CLI) | payer OTHER, SELFPAY ==
--- NOTE | ~2024-02-23 | MM_ITS ---
EXAMINATION: MM screening darinel BI w rico HISTORY: Screening TECHNIQUE: Craniocaudal and mediolateral oblique 3-D tomosynthesis images were obtained and synthetic 2-D images were generated. CAD analysis was submitted and interpreted. COMPARISON: Comparison to multiple prior studies sequentially, with oldest reviewed study dated 01/09. BREAST PARENCHYMAL COMPOSITION: There are scattered areas of fibroglandular density. FINDINGS: There is no evidence of suspicious mass, calcification, or architectural distortion to sugg est malignancy in either breast. There has been no suspicious interval change. IMPRESSION: 1. No mammographic evidence of malignancy. 2. Recommend routine screening mammography in one year. BI-RADS Category 1: Negative Reviewed, dictated and finalized at location B.
== END 2024-02-23 14:57 | disposition home or self-care (01) ==
LOC: ANHIMG 14:57
PROVIDERS: PCP Family Medicine; Visit Provider Nurse Practitioner
DX: Z12.31 Encounter for screening mammogram for malignant neoplasm of breast (principal)
CPT/HCPCS: 77063; 77067

== ENCOUNTER 2024-03-02 10:31 | Outpatient (CLI) | payer OTHER, SELFPAY ==
[2024-03-02 14:30] LABS: Basophils Percent Auto 0.7 % (0.2-1.2); Eosinophils Absolute Auto 0.2 K/mm3 (0-0.3); Eosinophils Percent Auto 2.9 % (0-4.4); Hematocrit 46.7 % (37.0-47.0); Hemoglobin 14.8 g/dL (12.0-15.0); Immature Granulocyte Absolute 0.02 K/mm3 (0.00-0.031); Immature Granulocyte Percent A 0.3 % (0-0.5); Lymphocytes Absolute Auto 1.27 K/mm3 (0.9-3.2); Lymphocytes Percent Auto 21.9 % (18.3-44.2); Mean Corpuscular HGB Conc 31.7 g/dl (32-36); Mean Corpuscular Hemoglobin 30.5 pg (26-34); Mean Corpuscular Volume 96.1 fl (80-100); Mean Platelet Volume 10.7 fl (7.4-10.4); Monocytes Absolute Auto 0.4 K/mm3 (0.1-0.6); Monocytes Percent Auto 7.6 % (2.6-8.5); Neutrophils Absolute Auto 3.9 K/mm3 (1.3-6.7); Neutrophils Percent Auto 66.6 % (45.5-73.1); Platelet Count Result 232 k/mm3 (150-375); Red Blood Count 4.86 M/mm3 (4.2-5.4); Red Cell Distribution Width 12.8 % (11.5-14.5); White Blood Count 5.8 K/mm3 (4.5-10.0)
[2024-03-02 16:18] LABS: Alanine Aminotransferase 14 U/L (6-35); Albumin Level 4.7 g/dL (3.5-5.1); Alkaline Phosphatase 79 U/L (38-126); Anion Gap 8 mmol/L (4-12); Aspartate Amino Transferase 55 U/L (14-36); Bilirubin,Total 0.7 mg/dL (0.2-1.3); Blood Urea Nitrogen 26 mg/dL (7-17); Calcium 9.6 mg/dL (8.4-10.2); Carbon Dioxide 28 mmol/L (22-30); Chloride 101 mmol/L (98-107); Cholesterol 208 mg/dL (0-200); Estimated Glomerular Filt Rate 55; Glucose 85 mg/dL (65-110); HDL Direct 62 mg/dL; Potassium 4.7 mmol/L (3.4-5.0); Sodium 137 mmol/L (137-145); Triglycerides 168 mg/dL (<150)
[2024-03-02 16:33] LABS: LDL Cholesterol Direct 111 mg/dL
[2024-03-06 13:19] LABS: Vitamin D 1,25 (OH)2 Total 45 pg/mL (18-72); Vitamin D2 1,25 (OH)2 10 pg/mL; Vitamin D3 1,25 (OH)2 35 pg/mL
== END 2024-03-02 10:32 | disposition home or self-care (01) ==
PROVIDERS: PCP Family Medicine; Visit Provider Nurse Practitioner Family
DX: E55.9 Vitamin D deficiency, unspecified (principal); I10 Essential (primary) hypertension
CPT/HCPCS: 36415; 80053; 80061; 82652; 85025

== ENCOUNTER 2024-04-17 16:30 | Emergency (ER) | payer OTHER, SELFPAY ==
--- NOTE | 2024-04-17 16:42 | ED.FEVER ---
HPI - Fever General Chief Complaint: Fever Stated Complaint: Fever/High Heart Rate Time Seen by Provider: 04/17/24 17:05 Source: patient and RN notes reviewed Mode of arrival: ambulatory Limitations: no limitations History of Present Illness HPI Narrative: 68-year-old female presents concern for fever and high heart rate for 1 week. She denies runny nose, stuffy nose, sore throat, cough. Denies nausea, vomiting, diarrhea. She denies dysuria, frequency, urgency, back pain, abdominal pain. Denies chills, sweats. MD elicited complaint: fever Related Data Home Medications Medication Instructions Recorded Confirmed losartan 25 mg tablet 25 mg PO DAILY 05/07/21 04/17/24 spironolactone 25 mg tablet 25 mg PO DAILY 05/07/21 04/17/24 apixaban 5 mg tablet (Eliquis) 5 mg PO BID 11/25/21 04/17/24 carvedilol 3.125 mg tablet 3.125 mg PO Q12H 07/01/23 04/17/24 Allergies Allergy/AdvReac Type Severity Reaction Status Date / Time No Known Allergies Allergy Verified 04/17/24 17:08 Review of Systems Review of Systems: CONSTITUTIONAL: Denies malaise, chills, sweats. Reports fever. CARDIOVASCULAR: Denies chest pain, palpitations, or edema.. Reports high heart rate RESPIRATORY: Denies cough or dyspnea. GASTROINTESTINAL: Denies abdominal pain, nausea, vomiting, diarrhea GENITOURINARY: Reports dysuria, frequency, urgency, suprapubic pressure. Denies flank pain or hematuria. SKIN: Denies rash or itching. MUSCULOSKELETAL: Denies back pain or myalgia. All systems reviewed & are unremarkable except as noted in HPI and below PMFSH Past Medical History Medical History CAD (coronary artery disease) CHF (congestive heart failure) CKD (chronic kidney disease) stage 3, GFR 30-59 ml/min Dependent edema Depression Dyslipidemia Essential (primary) hypertension GERD (gastroesophageal reflux disease) Hiatal hernia with GERD LEAH (obstructive sleep apnea) Type 2 diabetes mellitus without complication, without long-term current use of insulin Surgical History Surgical History History of cholecystectomy 1994 History of heart artery stent 03/2021 History of total abdominal hysterectomy and bilateral salpingo-oophorectomy 1987 Social History Social History Smoking status: Former smoker Tobacco type: cigarettes Second hand tobacco smoke exposure: No Smoking end date: 09/20/13 Additional smoking assessment comments: Quit smoking 2013 Alcohol intake: current Alcohol use details: Occasionally drinks Substance use: never Substance use type: does not use Lack of Transportation: No Lack of Food: Never True Current Housing: I Have Housing Concerned About Future Housing: No Difficulty Paying Gas/Electric Bills: No Difficulty Paying for Meds: No Currently Unemployed: No Education: High School Diploma/GED Difficulty w/ Childcare or Family Care: No Living arrangements: with friend(s) Additional living arrangements comments: Lives with boyfriend 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 There is no relevant family history pertinent to the presenting complaint Exam Narrative: GENERAL: Well-appearing, well-nourished, and in no acute distress. HEAD: Normocephalic. EYES: PERRLA, conjunctivae clear. NECK: Supple. No lymphadenopathy CHEST: Clear to auscultation. No respiratory distress. HEART: Regular rate and rhythm. ABDOMEN: Soft, nontender upon palpation, nondistended, normal active bowel sounds,
[2024-04-17 16:58] VITALS: BP 139/78; PULSE 100; RESP 16; TEMP 36.8; O2SAT 97
[2024-04-17 18:18] LABS: EDUAAPPEAR Clear; EDUABILI Negative; EDUABLOOD 1+; EDUACOLOR1 Yellow; EDUAGLUCOSE 1+; EDUAKETONE Negative; EDUALEUKO 1+; EDUANITRATE Positive; EDUAPH 5.5; EDUAPROTEIN 2+; EDUASPGRAVITY 1.015; EDUAUROBILI 0.2
== END 2024-04-17 17:13 | disposition home or self-care (01) ==
PROVIDERS: Emergency Provider Nurse Practitioner; PCP Family Medicine
DX: N39.0 Urinary tract infection, site not specified (principal); B96.20 Unspecified Escherichia coli [E. coli] as the cause of diseases classified elsewhere; Z87.891 Personal history of nicotine dependence; I13.0 Hypertensive heart and chronic kidney disease with heart failure and stage 1 through stage 4 chronic kidney disease, or unspecified chronic kidney disease; E11.22 Type 2 diabetes mellitus with diabetic chronic kidney disease; N18.30 Chronic kidney disease, stage 3 unspecified; I50.9 Heart failure, unspecified; Z79.84 Long term (current) use of oral hypoglycemic drugs; E78.5 Hyperlipidemia, unspecified; K21.9 Gastro-esophageal reflux disease without esophagitis; Z95.5 Presence of coronary angioplasty implant and graft
CPT/HCPCS: 81003; 87077; 87086; 87088; 87186; 99213; G0463

== ENCOUNTER 2024-05-02 15:35 | Outpatient (CLI) | payer OTHER, SELFPAY | END 2024-05-02 15:36 | disposition home or self-care (01) | LOC: ANHGOSHLAB 15:36 | PROVIDERS: PCP Family Medicine; Visit Provider Family Medicine | DX: N39.0 Urinary tract infection, site not specified (principal) | CPT/HCPCS: 87086; 87088 ==

== ENCOUNTER 2024-08-01 00:17 | Day surgery (SDC) | payer OTHER, SELFPAY ==
[2024-07-24 15:32] VITALS: BMI 36.6
--- NOTE | 2024-07-24 15:55 | PC.NURSE ---
Spoke with PATIENT regarding medication ELIQUIS. Pt. verbalizes understanding that the last dose of ELIQUIS is to be taken on 07/29/2024 and the Endoscopist will instruct them when to restart after the procedure.
[2024-08-01 07:33] VITALS: BP 141/88; PULSE 86; RESP 16; TEMP 36.2; O2SAT 99
[2024-08-01] MEDS: LACTATED RINGERS 1,000 ML 150 ML IV CONT (07:47)
[2024-08-01 07:52] LABS: Glucose Point of Care 115 mg/dl (65-105)
--- NOTE | 2024-08-01 07:57 | P.PNAN_ITS ---
Anes - Eval Pre Procedure Procedure: Operation Date: 08/01/24 08:30 Proposed Procedures p Screening Colonoscopy - Shiva Riggs MD Date/Time: 08/01/24 07:57 Surgeon: babs Pre Op Diagnosis: neoplasm screening Patient Data Age: 68 Gender: F Height: 1.69 m Weight: 103.5 kg Last Vital Signs Temp 97.1 F L 08/01/24 07:33 Pulse 86 08/01/24 07:33 Resp 16 08/01/24 07:33 BP 141/88 H 08/01/24 07:33 Pulse Ox 99 08/01/24 07:33 O2 Del Method Room Air 08/01/24 07:33 Allergies Allergy/AdvReac Type Severity Reaction Status Date / Time No Known Allergies Allergy Verified 08/01/24 07:31 Home Medications Medication Instructions Recorded Confirmed Type losartan 25 mg tablet 25 mg PO DAILY 05/07/21 08/01/24 History spironolactone 25 mg tablet 25 mg PO DAILY 05/07/21 08/01/24 History apixaban 5 mg tablet (Eliquis) 5 mg PO BID 11/25/21 08/01/24 History lancets 30 gauge (OneTouch Delica #100 ea 01/05/23 08/01/24 Rx Plus Lancet) atorvastatin 10 mg tablet See Rx Instructions .Route 01/15/23 08/01/24 Rx .COMPLEX #90 tabs carvedilol 3.125 mg tablet 3.125 mg PO Q12H 07/01/23 08/01/24 History blood sugar diagnostic (OneTouch #100 ea 09/24/23 08/01/24 Rx Verio test strips) empagliflozin 10 mg tablet See Rx Instructions .Route 11/03/23 08/01/24 Rx (Jardiance) .COMPLEX #90 tabs semaglutide 2 mg/dose (8 mg/3 mL) 2 mg (0.75 mL) subcut WEEKLY 90 11/03/23 08/01/24 Rx subcutaneous pen injector (Ozempic) days #9 mL omeprazole 40 mg capsule,delayed 40 mg PO DAILY #90 caps 03/28/24 08/01/24 Rx release clobetasol 0.05 % topical cream 1 applic topical BID PRN rash 4 05/31/24 08/01/24 Rx weeks #60 grams aspirin 81 mg chewable tablet 81 mg PO DAILY 07/24/24 08/01/24 History Laboratory Tests 08/01/24 07:30 POC Capillary Glucose 115 H mg/dl (65-105) ECG: last ecg 2020 SR rate 89 Other studies: 2020 echo EF 48% Patient hx anesthesia problems: none Family hx anesthesia problems: none Results Review: All pre-operative results and documents have been reviewed as part of the pre- operative evaluation. [facility] Past Medical History Medical History CAD (coronary artery disease) CHF (congestive heart failure) CKD (chronic kidney disease) stage 3, GFR 30-59 ml/min Dependent edema Depression Dyslipidemia Essential (primary) hypertension GERD (gastroesophageal reflux disease) Hiatal hernia with GERD LEAH (obstructive sleep apnea) Type 2 diabetes mellitus with chronic kidney disease (~2017) Surgical History Surgical History History of cholecystectomy 1993 History of heart artery stent 03/2021 History of total abdominal hysterectomy and bilateral salpingo-oophorectomy 1986 Social History Social History Smoking packs per day: 1 Smoking cigarettes per day: 20.0 Years smoked: 43 Smoking pack-years: 43.00 Smoking status: Former smoker Tobacco type: cigarettes Second hand tobacco smoke exposure: No Smoking end date: 09/20/13 Additional smoking assessment comments: Quit smoking 2013 Alcohol intake: current Drinks per week: 4 Alcohol use details: BEERS Substance use: never Substance use type: does not use Lack of Transportation: No Lack of Food: Never True Current Housing: I Have Housing Concerned About Future Housing: No Difficulty Paying Gas/Electric Bills: No Difficulty Paying for Meds: No Currently Unemployed: No Education: High School Diploma/GED Difficulty w/ Childcare or Family Care: No Living arrangements: with family Additional living arrangements comments: Lives with boyfriend Occupation/Education: occupation 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
--- NOTE | 2024-08-01 08:29 | P.PNAN_ITS ---
Anes - Eval Final PreProcedure Day of Procedure 08/01/24 08:29 Patient weight: obese Heart: regular rate and rhythm Lungs: decreased breath sounds Airway: Mallampati scale class II ASA classification: III Emergent: no Anesthetic plan: proceed Anesthesia type and monitoring: general GIVS Results Review: All pre-operative results and documents have been reviewed as part of the pre- operative evaluation. Informed Consent: The patient's anesthetic plan and its attendant risks and benefits were discussed with the patient/family/POA. Questions were solicited and answers provided to the satisfaction of the patient/family/POA.
--- NOTE | 2024-08-01 08:40 | P.HP_ITS ---
History of Present Illness History of Present Illness Consent: Risks, benefits, and alternatives have been discussed and questions answered. Patient agrees to proceed with procedure. Chief complaint: neoplasm screening Narrative: Mis Vo is a 68 year old female here for screening colonoscopy, last one 13 years ago Review of Systems Review of Systems: All systems reviewed & are unremarkable except as noted in HPI and below PMFSH Past Medical History Medical History (Updated 08/01/24 @ 08:41 by Shiva Riggs MD) CAD (coronary artery disease) CHF (congestive heart failure) CKD (chronic kidney disease) stage 3, GFR 30-59 ml/min Colon cancer screening Dependent edema Depression Dyslipidemia Essential (primary) hypertension GERD (gastroesophageal reflux disease) Hiatal hernia with GERD LEAH (obstructive sleep apnea) Type 2 diabetes mellitus with chronic kidney disease (~2017) Surgical History Surgical History History of cholecystectomy 1993 History of heart artery stent 03/2021 History of total abdominal hysterectomy and bilateral salpingo-oophorectomy 1986 Social History Social History Smoking packs per day: 1 Smoking cigarettes per day: 20.0 Years smoked: 43 Smoking pack-years: 43.00 Smoking status: Former smoker Tobacco type: cigarettes Second hand tobacco smoke exposure: No Smoking end date: 09/20/13 Additional smoking assessment comments: Quit smoking 2013 Alcohol intake: current Drinks per week: 4 Alcohol use details: BEERS Substance use: never Substance use type: does not use Lack of Transportation: No Lack of Food: Never True Current Housing: I Have Housing Concerned About Future Housing: No Difficulty Paying Gas/Electric Bills: No Difficulty Paying for Meds: No Currently Unemployed: No Education: High School Diploma/GED Difficulty w/ Childcare or Family Care: No Living arrangements: with family Additional living arrangements comments: Lives with boyfriend Occupation/Education: occupation 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 Gender identity (if verbalized by the patient): Female Sexual Orientation (if Verbalized by the Patient): Straight or Heterosexual Spiritual care concerns: No Agree to blood products: Yes Meds Home Medications and Allergies Home Medications Medication Instructions Recorded Confirmed Type losartan 25 mg tablet 25 mg PO DAILY 05/07/21 08/01/24 History spironolactone 25 mg tablet 25 mg PO DAILY 05/07/21 08/01/24 History apixaban 5 mg tablet (Eliquis) 5 mg PO BID 11/25/21 08/01/24 History lancets 30 gauge (Marilu Arguello #100 ea 01/05/23 08/01/24 Rx Plus Lancet) atorvastatin 10 mg tablet See Rx Instructions .Route 01/15/23 08/01/24 Rx .COMPLEX #90 tabs carvedilol 3.125 mg tablet 3.125 mg PO Q12H 07/01/23 08/01/24 History blood sugar diagnostic (Jocelinuch #100 ea 09/24/23 08/01/24 Rx Verio test strips) empagliflozin 10 mg tablet See Rx Instructions .Route 11/03/23 08/01/24 Rx (Jardiance) .COMPLEX #90 tabs semaglutide 2 mg/dose (8 mg/3 mL) 2 mg (0.75 mL) subcut WEEKLY 90 11/03/23 08/01/24 Rx subcutaneous pen injector ([employer]) days #9 mL omeprazole 40 mg capsule,delayed 40 mg PO DAILY #90 caps 03/28/24 08/01/24 Rx release clobetasol 0.05 % topical cream 1 applic topical BID PRN rash 4 05/31/24 08/01/24 Rx weeks #60 grams aspirin 81 mg chewable tablet 81 mg PO DAILY 07/24/24 08/01/24 History Allergies Allergy/AdvReac Type Severity Reaction Status Date / Time No Known Allergies Allergy Verified 08/01/24 07:31 Vital Signs Vital Signs - 24 hr 08/01/24 07:33 Temperature 97.1 F L Pulse Rate 86 Respiratory Rate 16 Blood Pressure 141/88 H Pulse Oximetry 99 Oxygen Delivery Room Air Exam Const: General: comfortable and no acute distress HENMT: Face/Nose/Sinus: Normal nares present Eyes: General: appearance normal, both eyes and all related structures Neck: Neck: no JVD Resp: Auscultation: clear to auscultation bilaterally Cardio: Rate: regular rate Rhythm: regular rhythm GI: Inspection: non-distended GI Palp: Yes Soft to palpation Skin: General skin exam: normal color Neuro: General: gait normal Speech: normal speech Extrem: General: normal to inspection Psych: Mental Status: mental status grossly normal Assessment and Plan Assessment and plan (1) Colon cancer screening: Code(s): Z12.11 - Encounter for screening for malignant neoplasm of colon Status: Acute Assessment and Plan: colonoscopy
[2024-08-01 09:10] VITALS: BP 96/53; PULSE 82; RESP 18; O2SAT 97
[2024-08-01 09:20] VITALS: BP 119/61; PULSE 79; RESP 17; O2SAT 99
[2024-08-01 09:30] VITALS: BP 108/60; PULSE 79; RESP 20; O2SAT 99
== END 2024-08-01 09:47 | disposition home or self-care (01) ==
PROVIDERS: PCP Family Medicine; Visit Provider Internal Medicine Gastroenterology
PROC: 0DJD8ZZ Inspection of Lower Intestinal Tract, Via Natural or Artificial Opening Endoscopic (ICD-10-PCS; CPT 45378; principal; 2024-08-01 08:30)
DX: Z12.11 Encounter for screening for malignant neoplasm of colon (principal); D12.3 Benign neoplasm of transverse colon; I25.10 Atherosclerotic heart disease of native coronary artery without angina pectoris; I13.0 Hypertensive heart and chronic kidney disease with heart failure and stage 1 through stage 4 chronic kidney disease, or unspecified chronic kidney disease; I50.9 Heart failure, unspecified; E11.22 Type 2 diabetes mellitus with diabetic chronic kidney disease; N18.30 Chronic kidney disease, stage 3 unspecified; E78.5 Hyperlipidemia, unspecified; G47.33 Obstructive sleep apnea (adult) (pediatric); K21.9 Gastro-esophageal reflux disease without esophagitis; F32.A Depression, unspecified; Z79.01 Long term (current) use of anticoagulants; Z79.84 Long term (current) use of oral hypoglycemic drugs; Z79.85 Long-term (current) use of injectable non-insulin antidiabetic drugs; Z95.5 Presence of coronary angioplasty implant and graft; Z87.891 Personal history of nicotine dependence; E66.9 Obesity, unspecified; Z68.36 Body mass index [BMI] 36.0-36.9, adult
CPT/HCPCS: 45385; 82948; 88305; J2003; J2704; J7120

== ENCOUNTER 2025-07-27 15:16 | Outpatient (CLI) | payer OTHER, SELFPAY ==
[2025-07-27 17:49] LABS: Alanine Aminotransferase 15 U/L (6-35); Albumin Level 4.6 g/dL (3.5-5.1); Alkaline Phosphatase 76 U/L (38-126); Anion Gap 8 mmol/L (4-12); Aspartate Amino Transferase 32 U/L (14-36); Bilirubin,Total 0.4 mg/dL (0.2-1.3); Blood Urea Nitrogen 19 mg/dL (7-17); Calcium 9.6 mg/dL (8.4-10.2); Carbon Dioxide 29 mmol/L (22-30); Chloride 101 mmol/L (98-107); Cholesterol 208 mg/dL (0-200); Estimated Glomerular Filt Rate > 60; Glucose 92 mg/dL (65-110); HDL Direct 61 mg/dL; Potassium 4.8 mmol/L (3.4-5.0); Sodium 138 mmol/L (137-145); Total Protein 7.9 g/dL (6.3-8.2); Triglycerides 188 mg/dL (<150)
[2025-07-27 18:08] LABS: Free T4 Free Thyroxine 0.98 ng/dL (0.78-2.19)
[2025-07-27 18:16] LABS: MALB Creatinine Ratio 95.5 mg/g (0-30)
[2025-07-27 18:24] LABS: Thyroid Stimulating Hormone 1.670 uIU/mL (0.465-4.680)
[2025-07-27 18:43] LABS: Vitamin B12 316.0 pg/mL (239-931)
== END 2025-07-27 15:17 | disposition home or self-care (01) ==
LOC: ANHGOSHLAB 15:17
PROVIDERS: PCP Nurse Practitioner Family; Visit Provider Nurse Practitioner Family
DX: E78.5 Hyperlipidemia, unspecified (principal); E11.22 Type 2 diabetes mellitus with diabetic chronic kidney disease; I12.9 Hypertensive chronic kidney disease with stage 1 through stage 4 chronic kidney disease, or unspecified chronic kidney disease; N18.31 Chronic kidney disease, stage 3a; E11.65 Type 2 diabetes mellitus with hyperglycemia; E11.29 Type 2 diabetes mellitus with other diabetic kidney complication; R79.89 Other specified abnormal findings of blood chemistry; R80.9 Proteinuria, unspecified
CPT/HCPCS: 36415; 80053; 80061; 82043; 82306; 82607; 84439; 84443